=== PATIENT | male | born 1970 ===

== ENCOUNTER → 2022-09-25 09:37 | Outpatient (CLI) | payer OTHER, SELFPAY ==
--- NOTE | ~2022-09-25 | MR_ITS ---
EXAMINATION: MR knee RT wo con DATE: 09/25/2022 10:27 INDICATION: Medial right knee pain status post twisting injury 09/27. TECHNIQUE: Magnetic resonance imaging (MRI) of the knee was performed without intravenous contrast. S equences included axial PD-weighted FS FSE, coronal PD-weighted FSE and PD-weighted FS FSE, sagittal PD-weighted FSE, and sagittal T2-weighted FS FSE. COMPARISON: None. FINDINGS: Medial compartment: Intact meniscus. Mild cartilage thinning. Mild osteophytosis. Lateral compartment: Intact meniscus. Mild cartilage thinning. Mild osteophytosis. Patellofemoral compartment: Slight cartilage irregularity along the medial facet. Medial retinaculum is discontiguous. Lateral re tinaculum is intact. Ligaments and tendons: Partial MCL tear. ACL contains areas of high signal. PCL and LCL are intact. Mild strains of the semi tendinosus tendon and the pes anserine tendons as well as the origin of the medial head of the gastro c. Remaining flexor and extensor tendons are intact. Fluid: Small volume joint fluid. Osseous/other: Moderate marrow contusion in the medial aspect of the medial femoral condyle with linear low signal a reas that may represent subchondral fracture. IMPRESSION: 1. Moderate focus of marrow contusion in the medial femoral condyle with a small focus of subchondral fracture. 2. Partial ACL tear. 3. Partial MCL tear. 4. Findings suggestive of prior patellar dislocation. 5. Small knee joint effusion. Reviewed, dictated and finalized at location [facility] IMPRESSION: 1. Moderate focus of marrow contusion in the medial femoral condyle with a smal l focus of subchondral fracture. 2. Partial ACL tear. 3. Partial MCL tear. 4. Findings suggestive of prior patellar dislocation. 5. Small knee joint effusion.
== END ==
PROVIDERS: PCP Internal Medicine; Visit Provider Orthopaedic Surgery
DX: M25.461 Effusion, right knee (principal); S83.511A Sprain of anterior cruciate ligament of right knee, initial encounter; S83.411A Sprain of medial collateral ligament of right knee, initial encounter; X58.XXXA Exposure to other specified factors, initial encounter
CPT/HCPCS: 73721